=== PATIENT | female | born 2000 | race Two or more races ===

== ENCOUNTER 2024-07-28 17:18 | Emergency (ER) | payer SELFPAY ==
[2024-07-28 17:30] VITALS: BP 126/73; PULSE 84; RESP 14; TEMP 36.6; O2SAT 100
[2024-07-28] MEDS: dexAMETHasone SOD PHOS INJ 10 MG/ML 1 ML VIAL IV PUSH (18:28)
[2024-07-28] MEDS: FAMOTIDINE 20 MG/2 ML VIAL IV PUSH (18:28)
--- NOTE | 2024-07-28 18:44 | ED.ALLEREA ---
HPI - Allergic Reaction General Chief complaint: Allergic Reaction Stated complaint: allergic reaction (?) Time Seen by Provider: 07/28/24 17:56 History of Present Illness HPI narrative: Patient who had allergic reaction two weeks ago to some food started having sensation of numbness to her throat and tongue and lips, just Zyrtec, started feeling better, has no skin rash, nausea vomiting, swelling of her lips or tongue, shortness of breath. Related Data Allergies Allergy/AdvReac Type Severity Reaction Status Date / Time peanut Allergy Unknown Unknown Verified 07/28/24 17:30 Penicillins Allergy Rash Verified 07/28/24 17:30 Review of Systems Review of Systems: All systems reviewed & are unremarkable except as noted in HPI and below Exam Narrative: EXAMINATION OF ORGAN SYSTEMS/BODY AREAS: Constitutional: Vital signs per nursing GENERAL:[No acute distress, non-toxic appearing.] HEAD: Normal with no signs of head trauma. EYES: EOMI, conjunctiva normal ENT: No obvious lip, tongue, or oropharyngeal edema LUNGS: Nonlabored breathing. HEART: [Regular rate and rhythm] ABD: [Soft], [nontender to palpation] EXT: Normal range of motion SKIN: [No rashes or lesions.] NEURO: [Alert and oriented x 3. No gross focal sensory or strength deficits.] PSYCH: Normal affect Course Vital Signs Vital signs: Vital Signs Temperature 97.9 F 07/28/24 17:30 Pulse Rate 84 07/28/24 17:30 Respiratory Rate 14 07/28/24 17:30 Blood Pressure 126/73 07/28/24 17:30 Pulse Oximetry 100 07/28/24 17:30 Oxygen Delivery Room Air 07/28/24 17:30 Temperature 97.9 F 07/28/24 17:30 Pulse Rate 84 07/28/24 17:30 Respiratory Rate 14 07/28/24 17:30 Blood Pressure 126/73 07/28/24 17:30 Pulse Oximetry 100 07/28/24 17:30 Oxygen Delivery Room Air 07/28/24 17:30 MDM - Allergic Reaction MDM Narrative Medical decision making narrative: Patient who had allergic reaction two weeks ago to some food started having sensation of numbness to her throat and tongue and lips, just Zyrtec, started feeling better, has no skin rash, nausea vomiting, swelling of her lips or tongue, shortness of breath. Vitals [were within acceptable limits]. Physical exam revealed well appearing patient with no rash, she has NLR and no signs of airway compromise. Based on the patient's history and physical exam, my differential includes but is not limited to [allergic reaction, pharyngitis, angioedema]. [Patient was given famotidine, steroids]. On re-evaluation, the patient was feeling improved. She has not had worsening of symptoms here and is stable for discharge, she still has epipen and zyrtec from her last reaction 2 weeks ago, so I just gave rx for prednisone and will have her followup with PCP, return for further issues. Patient verbalizes understanding. Discharge Plan Discharge Clinical Impression: Allergic reaction Patient Disposition: Home, Self-Care Condition: Stable Instructions: Antibiotic Form, General Allergic Reaction (ED) Additional Instructions: Take the medications that you are prescribed, and you can take the steroids starting tomorrow. If he start feeling your throat swelling again or anything else concerning, use your EpiPen immediately and go to the nearest ER. Please follow-up with your primary care doctor to get home. Prescriptions: New prednisone 20 mg tablet 40 mg PO DAILY 4 Days Qty: 8 0RF Follow-up/Referrals: PHYSICIAN,[employer] [Primary Care Provider] -
== END 2024-07-28 18:55 | disposition home or self-care (01) ==
PROVIDERS: Emergency Provider Emergency Medicine
DX: T78.40XA Allergy, unspecified, initial encounter (principal); X58.XXXA Exposure to other specified factors, initial encounter
CPT/HCPCS: 96374; 96375; 99284; J1100